=== PATIENT | female | born 1935 | race Caucasian/White ===

== ENCOUNTER 2023-09-17 01:12 | Day surgery (SDC) | payer MEDICARE, BC, SELFPAY ==
[2023-08-30 13:54] VITALS: BMI 25.0
--- NOTE | 2023-09-17 12:19 | WPDANESEPPF ---
Anes - Initial Pre Proc Eval Procedure: Operation Date: 09/17/23 13:30 Proposed Procedures p Esophagogastroduodenoscopy - Darnell Groves MD Date/Time: 09/17/23 12:19 Surgeon: Darnell Groves MD Pre Op Diagnosis: Dyshpagia, personal hx. of other dig. sys. disease Patient Data Age: 87 Gender: F Height: 1.57 m Weight: 62 kg Allergies Allergy/AdvReac Type Severity Reaction Status Date / Time cetirizine Allergy Unknown HIVES Verified 09/17/23 12:15 nitrofurantoin Allergy Unknown CHILLS,SHAKING,UNSTEADY Verified 09/17/23 12:15 GAIT tramadol AdvReac Unknown Verified 09/17/23 12:15 Home Medications Medication Instructions Recorded Confirmed Type Centrum Silver 1 tab-cap PO DAILY 08/30/23 08/30/23 History aspirin 81 mg tablet 81 mg PO DAILY 08/30/23 08/30/23 History cephalexin 250 mg tablet 250 mg PO DAILY 08/30/23 08/30/23 History esomeprazole magnesium 40 mg 40 mg PO DAILY 08/30/23 08/30/23 History capsule,delayed release famotidine 40 mg tablet 40 mg PO DAILY 08/30/23 08/30/23 History furosemide 20 mg tablet 20 mg PO DAILY 08/30/23 08/30/23 History hydralazine 25 mg tablet 25 mg PO BID 08/30/23 08/30/23 History lisinopril 40 mg tablet 40 mg PO DAILY 08/30/23 08/30/23 History magnesium 250 mg tablet 250 mg PO DAILY 08/30/23 08/30/23 History metoprolol succinate 100 mg 100 mg PO DAILY 08/30/23 08/30/23 History tablet,extended release 24 hr simvastatin 40 mg tablet 40 mg PO DAILY 08/30/23 08/30/23 History vibegron 75 mg tablet (Gemtesa) 75 mg PO DAILY 08/30/23 08/30/23 History vitamins A,C,Y-peta-xboraf 2,148 1 tablet PO DAILY 08/30/23 08/30/23 History mcg-113 mg-45 mg-17.4 mg tablet (PreserVision AREDS) Patient hx anesthesia problems: none Family hx anesthesia problems: none Results Review: All pre-operative results and documents have been reviewed as part of the pre-operative evaluation. [facility] Past Medical History Medical History (Updated 09/17/23 @ 12:19 by Ankit Brown MD) HTN (hypertension) Surgical History Surgical History (Updated 09/17/23 @ 12:22 by Ankit Brown MD) H/O: hysterectomy History of shoulder surgery Social History Social History Smoking status: Never smoker Alcohol intake: current Drinks per week: 7 Substance use type: does not use Living arrangements: with family Spiritual care concerns: No Anes - Eval Final PreProcedure Day of Procedure 09/17/23 12:19 Patient weight: normal Heart: regular rate and rhythm Lungs: clear to auscultation Airway: Mallampati scale class II Neurological: alert and oriented Last oral intake: >/= 8 hours ASA classification: II Emergent: no Anesthetic plan: proceed Anesthesia type and monitoring: general GIVS and standard monitoring Results Review: All pre-operative results and documents have been reviewed as part of the pre-operative evaluation. Informed Consent: The patient's anesthetic plan and its attendant risks and benefits were discussed with the patient/family/POA. Questions were solicited and answers provided to the satisfaction of the patient/family/POA.
[2023-09-17 12:21] VITALS: BP 158/88; PULSE 68; RESP 18; TEMP 36.3; O2SAT 100
[2023-09-17] MEDS: LACTATED RINGERS 1,000 ML 150 ML IV CONT (12:36)
--- NOTE | 2023-09-17 12:43 | PM.HPGS ---
History of Present Illness History of Present Illness Consent: Risks, benefits, and alternatives have been discussed and questions answered. Patient agrees to proceed with procedure. Chief complaint: Dyshpagia, personal hx. of other dig. sys. disease Narrative: Daisy Martin is a 87 year old female here for egd, remote history of esophageal ring with dilation, she has globus sensation, also chronic cough Review of Systems Review of Systems: All systems reviewed & are unremarkable except as noted in HPI and below PMFSH Past Medical History Medical History (Updated 09/17/23 @ 12:43 by Darnell Groves MD) Cough Globus sensation HTN (hypertension) Surgical History Surgical History (Updated 09/17/23 @ 12:22 by Ankit Brown MD) H/O: hysterectomy History of shoulder surgery Social History Social History Smoking status: Never smoker Alcohol intake: current Drinks per week: 7 Substance use type: does not use Living arrangements: with family Spiritual care concerns: No Meds Home Medications and Allergies Home Medications Medication Instructions Recorded Confirmed Type Centrum Silver 1 tab-cap PO DAILY 08/30/23 08/30/23 History aspirin 81 mg tablet 81 mg PO DAILY 08/30/23 08/30/23 History cephalexin 250 mg tablet 250 mg PO DAILY 08/30/23 08/30/23 History esomeprazole magnesium 40 mg 40 mg PO DAILY 08/30/23 08/30/23 History capsule,delayed release famotidine 40 mg tablet 40 mg PO DAILY 08/30/23 08/30/23 History furosemide 20 mg tablet 20 mg PO DAILY 08/30/23 08/30/23 History hydralazine 25 mg tablet 25 mg PO BID 08/30/23 08/30/23 History lisinopril 40 mg tablet 40 mg PO DAILY 08/30/23 08/30/23 History magnesium 250 mg tablet 250 mg PO DAILY 08/30/23 08/30/23 History metoprolol succinate 100 mg 100 mg PO DAILY 08/30/23 08/30/23 History tablet,extended release 24 hr simvastatin 40 mg tablet 40 mg PO DAILY 08/30/23 08/30/23 History vibegron 75 mg tablet (Gemtesa) 75 mg PO DAILY 08/30/23 08/30/23 History vitamins A,C,U-gmve-httiag 2,148 1 tablet PO DAILY 08/30/23 08/30/23 History mcg-113 mg-45 mg-17.4 mg tablet (PreserVision AREDS) Allergies Allergy/AdvReac Type Severity Reaction Status Date / Time cetirizine Allergy Unknown HIVES Verified 09/17/23 12:15 nitrofurantoin Allergy Unknown CHILLS,SHAKING,UNSTEADY Verified 09/17/23 12:15 GAIT tramadol AdvReac Unknown Verified 09/17/23 12:15 Vital Signs Vital Signs - 24 hr 09/17/23 12:21 Temperature 97.4 F L Pulse Rate 68 Respiratory Rate 18 Blood Pressure 158/88 H Pulse Oximetry 100 Oxygen Delivery Room Air Exam Const: General: comfortable and no acute distress HENMT: Face/Nose/Sinus: Normal nares present Eyes: General: appearance normal, both eyes and all related structures Neck: Neck: no JVD Resp: Auscultation: clear to auscultation bilaterally Cardio: Rate: regular rate Rhythm: regular rhythm GI: Inspection: non-distended GI Palp: Yes Soft to palpation Skin: General skin exam: normal color Neuro: General: gait normal Speech: normal speech Extrem: General: normal to inspection Psych: Mental Status: mental status grossly normal Assessment and Plan Assessment and plan (1) Globus sensation: Code(s): R09.A2 - Foreign body sensation, throat Status: Acute Assessment and Plan: egd to assess (2) Cough: Code(s): R05.9 - Cough, unspecified Status: Acute
[2023-09-17 12:54] VITALS: BP 99/45; PULSE 64; RESP 16; O2SAT 100
[2023-09-17 13:04] VITALS: BP 106/51; PULSE 67; RESP 20; O2SAT 100
[2023-09-17 13:14] VITALS: BP 125/73; PULSE 66; RESP 22; O2SAT 100
== END 2023-09-17 13:28 | disposition home or self-care (01) ==
PROVIDERS: PCP Internal Medicine; Visit Provider Internal Medicine Gastroenterology
PROC: 0DJ08ZZ Inspection of Upper Intestinal Tract, Via Natural or Artificial Opening Endoscopic (ICD-10-PCS; CPT 43235; principal; 2023-09-17 13:30)
DX: R13.10 Dysphagia, unspecified (principal); R09.A2 Foreign body sensation, throat; R05.9 Cough, unspecified; Z87.19 Personal history of other diseases of the digestive system; I10 Essential (primary) hypertension
CPT/HCPCS: 43235; J2001; J2704; J7120